=== PATIENT | female | born 1950 | race Caucasian/White ===

== ENCOUNTER 2021-10-29 04:15 | Emergency (ER) | payer OTHER ==
[~2021-10-29] VITALS: Ht 152.4 cm; Wt 59.0 kg
--- NOTE | 2021-10-29 04:35 | NUR ---
TO ER BED 9. [id number] FROM HOME C/O NEAR SYNCOPE UPON WAKING UP, PT STATES HER BP WAS ELEVATED THE NIGHT BEFORE AND TOOK A HIGHER THAN NORMAL DOSE OF HER BP MEDS. PT NOT IN RESPIRATORY DISTRESS. CHANGED INTO GOWN. CONNECTED TO MONITOR.
--- NOTE | 2021-10-29 04:53 | NUR ---
LAB AT BEDSIDE
--- NOTE | 2021-10-29 04:57 | NUR ---
URINE SAMPLE COLLECTED AND SENT TO LAB
[2021-10-29 05:03] LABS: BASOPHILS # (AUTO) 0.1 K/uL (0.0-0.2); BASOPHILS % (AUTO) 1.5 % (0.0-2.0); BILIRUBIN,URINE NEGATIVE (NEGATIVE); COLOR,URINE YELLOW (YELLOW); EOSINOPHILS % (AUTO) 8.4 % (0.0-6.0); HEMATOCRIT 43 % (33-45); HEMOGLOBIN 14.4 g/dL (11.5-14.8); LEUKOCYTE ESTERASE ,URINE NEGATIVE (NEGATIVE); LYMPHOCYTES # (AUTO) 2.4 K/uL (0.8-4.8); LYMPHOCYTES % (AUTO) 43.8 % (20.0-44.0); MEAN CORPUSCULAR HGB CONC 33 g/dl (31.0-36.0); MEAN CORPUSCULAR VOLUME 92 fL (82-100); MONOCYTES # (AUTO) 0.5 K/uL (0.1-1.30); MONOCYTES % (AUTO) 8.5 % (2.0-12.0); NEUTROPHILS % (AUTO) 37.8 % (43.0-81.0); NITRITE, URINE NEGATIVE (NEGATIVE); PLATELET COUNT (AUTO) 210 K/uL (150-450); PROTEIN,URINE NEGATIVE (NEGATIVE); RED BLOOD CELL COUNT(AUTO) 4.71 MIL/uL (4.0-5.2); UGLUCOSE NEGATIVE (NEGATIVE); UROBILINOGEN,URINE 0.2 EU/dL (0.2); WHITE BLOOD COUNT (AUTO) 5.4 K/uL (4.3-11.0)
[2021-10-29 05:21] LABS: ALANINE AMINOTRANSFERASE 31 U/L (12-78); ALBUMIN 4.1 g/dL (3.4-5.0); ALKALINE PHOSPHATASE 89 U/L (46-116); ASPARTATE AMINOTRANSFERASE 20 U/L (15-37); BILIRUBIN,DIRECT 0.2 mg/dL (0.0-0.2); BILIRUBIN,TOTAL 0.4 mg/dL (0.2-1.0); CALCIUM, SERUM 9.5 mg/dL (8.5-10.1); CARBON DIOXIDE 30 mmol/L (21-32); CHLORIDE 99 mmol/L (98-107); CREATININE 0.9 mg/dL (0.6-1.3); GLUCOSE 95 mg/dL (74-106); POTASSIUM 3.7 mmol/L (3.5-5.1); SODIUM SERUM 133 mmol/L (136-145); TOTAL PROTEIN, SERUM 7.4 g/dL (6.4-8.2); UREA NITROGEN, BLOOD 12 mg/dL (7-18)
[2021-10-29] MEDS ORDERED: SIMV5TAB59 PO (07:31)
[2021-10-29] MEDS ORDERED: LEVO88TA5 PO (07:31)
[2021-10-29] MEDS ORDERED: LOSA50TA39 PO (07:55)
[2021-10-29] MEDS ORDERED: ASPIRIN 325 MG TABLET ONE (07:59)
[2021-10-29] MEDS ORDERED: ASPIRIN 325 MG TABLET PO ONE (08:00)
--- NOTE | 2021-10-29 08:22 | NUR ---
[facility] [phone]
--- NOTE | 2021-10-29 08:27 | NUR ---
COVID SWAB DONE AND SENT TO LAB
--- NOTE | 2021-10-29 08:52 | NUR ---
FAXED CLINICALS TO [facility]
--- NOTE | 2021-10-29 10:24 | NUR ---
TRANSFER INFO RECIEVED A CALL FROM IAN AYALA FROM [facility]. PT ACCEPTED TO [facility] RO[facility]. AILYN IS THE NURSE. NUMBER FOR REPORT [phone]. 1130 AM AMBULANCE ETA WITH [facility].
--- NOTE | 2021-10-29 10:32 | NUR ---
ATTEMPTED TO GIVE REPORT TO AILYN RN, NURSE IS ATTENDING TO ANOTHER PATIENT. WILL CALL AGAIN
--- NOTE | 2021-10-29 10:49 | NUR ---
REPORT GIVEN TO NURSE RN FOR NERISSA
[2021-10-29 11:06] VITALS: BP 119/57
--- NOTE | 2021-10-29 11:47 | NUR ---
PICKED UP BY TRANSPORT IN STABLE CONDITION
== END 2021-10-29 11:48 | disposition short-term general hospital (02) ==
LOC: ER 04:30
DX: R07.9 Chest pain, unspecified (principal); R53.1 Weakness; Z20.822 Contact with and (suspected) exposure to COVID-19; E03.9 Hypothyroidism, unspecified
CPT/HCPCS: 36415; 70450; 71045; 80048; 80076; 81003; 82962; 84484 ×2; 85025; 85730; 87426; 93005; 99285; C9803

== ENCOUNTER 2021-12-13 15:12 | Emergency (ER) | payer OTHER ==
[~2021-12-13] VITALS: Ht 165.1 cm; Wt 63.5 kg
[~2021-12-13 15:12] MED LIST: LEVO88TA5 PO; LOSA50TA39 PO; SIMV5TAB59 PO
--- NOTE | 2021-12-13 15:17 | NUR ---
BIBRA 89 C/O DIZZINESS AND HIGH BP 180 SYSTOLIC STARTED LAST NIGHT. AAOX4 NOT IN DISTRESS.
--- NOTE | 2021-12-13 15:19 | NUR ---
AT BEDSIDE FOR EVAL.
--- NOTE | 2021-12-13 15:25 | NUR ---
BLOOD DRAWN AND SENT TO LAB.
[2021-12-13 15:37] LABS: BASOPHILS % (AUTO) 0.4 % (0.0-2.0); EOSINOPHILS % (AUTO) 3.2 % (0.0-6.0); HEMATOCRIT 40 % (33-45); HEMOGLOBIN 13.3 g/dL (11.5-14.8); LYMPHOCYTES # (AUTO) 2.3 K/uL (0.8-4.8); LYMPHOCYTES % (AUTO) 25.6 % (20.0-44.0); MEAN CORPUSCULAR HGB CONC 34 g/dl (31.0-36.0); MEAN CORPUSCULAR VOLUME 91 fL (82-100); MONOCYTES # (AUTO) 0.6 K/uL (0.1-1.30); NEUTROPHILS # (AUTO) 5.8 K/uL (1.8-8.9); NEUTROPHILS % (AUTO) 63.8 % (43.0-81.0); PLATELET COUNT (AUTO) 186 K/uL (150-450); WHITE BLOOD COUNT (AUTO) 9.1 K/uL (4.3-11.0)
[2021-12-13 15:52] LABS: CALCIUM, SERUM 9.2 mg/dL (8.5-10.1); CARBON DIOXIDE 27 mmol/L (21-32); CHLORIDE 97 mmol/L (98-107); CREATININE 0.8 mg/dL (0.6-1.3); GLUCOSE 114 mg/dL (74-106); POTASSIUM 3.8 mmol/L (3.5-5.1); SODIUM SERUM 129 mmol/L (136-145); UREA NITROGEN, BLOOD 11 mg/dL (7-18)
[2021-12-13] MEDS ORDERED: TRAM50TA PO (17:33)
--- NOTE | 2021-12-13 17:50 | NUR ---
IV removed. Catheter intact and site benign. Pressure and 4x4 applied to site. No bleeding noted.Patient discharged to home in stable condition. Written and verbal after care instructions given. Patient verbalizes understanding of instruction.
[2021-12-13 17:52] VITALS: BP 135/80
== END 2021-12-13 17:53 | disposition home or self-care (01) ==
LOC: ER 15:15
DX: G89.18 Other acute postprocedural pain (principal); I10 Essential (primary) hypertension; E03.9 Hypothyroidism, unspecified; Z95.0 Presence of cardiac pacemaker; Z91.040 Latex allergy status; Z60.2 Problems related to living alone; Z79.899 Other long term (current) drug therapy
CPT/HCPCS: 36415; 71045-TC; 80048-TC; 84484-TC; 85025-TC